=== PATIENT | female | born 1975 | race Caucasian/White ===

== ENCOUNTER 2020-10-02 13:30 | Emergency (ER) | payer OTHER ==
[2020-10-02 13:42] VITALS: RESP 18
[2020-10-02] MEDS ORDERED: SODIUM CHLORIDE 0.9% 1,000 ML IV STA (14:01)
[2020-10-02] MEDS ORDERED: ONDANSETRON 4 MG/2 ML VIAL IVP STA (14:01)
[2020-10-02] MEDS ORDERED: MORPHINE SULFATE 4 MG/ML SYRINGE IV STA (14:01)
--- NOTE | 2020-10-02 14:15 | ED ---
Abdominal Pain HPI - General Chief Complaint: Abdominal Pain Stated Complaint: Pain in R abdomen, Time Seen by Provider: 10/02/20 13:42 Source: patient, RN notes reviewed Mode of arrival: ambulatory Limitations: no limitations - History of Present Illness Initial Comments: This a 45-year-old female presents emergency Department chief complaint of abdominal pain. Patient states started Tuesday has progressively worsened. She has right lower quadrant abdominal pain that she states that is not improving. She states she's been taking 800 mg Motrin constantly states that the pain is worsening. She states it does radiate slightly to the right side. Patient denies any dysuria hematuria. Patient states she thought initially was just from her mental cycle. Denies any significant diarrhea constipation chest pain shortness breath no prior abdominal surgeries. - Related Data Home Medications Medication Instructions Recorded Confirmed Acetaminophen Tab [Tylenol Tab] 1,000 mg PO Q6H PRN 10/02/20 10/02/20 Amberen 1 tab PO DAILY 10/02/20 10/02/20 Biotin 5 mg PO DAILY 10/02/20 10/02/20 Cider Vinegar [Apple Cider Vinegar] 300 mg PO DAILY 10/02/20 10/02/20 Cyanocobalamin (Vitamin B-12) 1,000 mcg PO DAILY 10/02/20 10/02/20 [Vitamin B-12] Esomeprazole Magnesium [NexIUM 20 mg PO DAILY 10/02/20 10/02/20 24Hr] Ibuprofen [Motrin Ib] 800 mg PO Q6H PRN 10/02/20 10/02/20 Vitamin D3(Unknown) 1 tab PO DAILY 10/02/20 10/02/20 Allergies Allergy/AdvReac Type Severity Reaction Status Date / Time Sulfa (Sulfonamide Allergy Rash/Hives Verified 10/02/20 14:46 Antibiotics) Review of Systems ROS Statement: Those systems with pertinent positive or pertinent negative responses have been documented in the HPI. ROS Other: All systems not noted in ROS Statement are negative. Past Medical History History of Any Multi-Drug Resistant Organisms: None Reported Past Surgical History: Section Additional Past Surgical History / Comment(s): uterine ablation, D&C Smoking Status: Never smoker Past Alcohol Use History: None Reported Past Drug Use History: None Reported General Exam Limitations: no limitations General appearance: alert, in no apparent distress Head exam: Present: atraumatic, normocephalic, normal inspection Neck exam: Present: normal inspection, full ROM. Absent: tenderness, meningismus, lymphadenopathy Respiratory exam: Present: normal lung sounds bilaterally. Absent: respiratory distress, wheezes, rales, rhonchi, stridor Cardiovascular Exam: Present: regular rate, normal rhythm, normal heart sounds. Absent: systolic murmur, diastolic murmur, rubs, gallop, clicks GI/Abdominal exam: Present: soft, tenderness (Moderate right-sided abdominal tenderness), normal bowel sounds. Absent: distended, guarding, rebound, rigid Back exam: Absent: CVA tenderness (R), CVA tenderness (L) Neurological exam: Present: alert Skin exam: Present: warm, dry, intact, normal color. Absent: rash Course Vital Signs 10/02/20 10/02/20 13:38 15:36 Temperature 97.9 F 98 F Pulse Rate 71 66 Respiratory 18 18 Rate Blood Pressure 137/81 116/74 O2 Sat by Pulse 99 99 Oximetry Medical Decision Making - Medical Decision Making 45-year-old female presented for right-sided abdominal pain and CT confirmed approximately 3 cm ovarian cyst. patient otherwise unremarkable urinalysis unremarkable labs reviewed. patient follow-up with her lighter captain return parameters were discussed. - Lab Data Result diagrams: 10/02/20 14:02 10/02/20 14:02 Lab Results 10/02/20 10/02/20 10/02/20 Range/Units 14:02 14:02 14:02 WBC 12.4 H (3.8-10.6) k/uL RBC 4.70 (3.80-5.40) m/uL Hgb 13.7 (11.4-16.0) gm/dL Hct 42.9 (34.0-46.0) % MCV 91.4 (80.0-100.0) fL MCH 29.2 (25.0-35.0) pg MCHC 32.0 (31.0-37.0) g/dL RDW 13.2 (11.5-15.5) % Plt Count 252 (150-450) k/uL MPV 7.9 Neutrophils % 83 % Lymphocytes % 12 % Monocytes % 3 % Eosinophils % 1 % Basophils % 0 % Neutrophils # 10.3 H (1.3-7.7) k/uL Lymphocytes # 1.5 (1.0-4.8) k/uL Monocytes # 0.4 (0-1.0) k/uL Eosinophils # 0.1 (0-0.7) k/uL Basophils # 0.0 (0-0.2) k/uL Sodium 139 (137-145) mmol/L Potassium 4.0 (3.5-5.1) mmol/L Chloride 103 (98-107) mmol/L Carbon Dioxide 27 (22-30) mmol/L Anion Gap 9 mmol/L BUN 15 (7-17) mg/dL Creatinine 0.79 (0.52-1.04) mg/dL Est GFR (CKD-EPI)AfAm >90 (>60 ml/min/1.73 sqM) Est GFR (CKD-EPI)NonAf >90 (>60 ml/min/1.73 sqM) Glucose 100 H (74-99) mg/dL Plasma Lactic Acid Adria (0.7-2.0) mmol/L Calcium 9.4 (8.4-10.2) mg/dL Total Bilirubin 0.5 (0.2-1.3) mg/dL AST 22 (14-36) U/L ALT 15 (4-34) U/L Alkaline Phosphatase 98 (38-126) U/L Total Protein 7.7 (6.3-8.2) g/dL Albumin 4.6 (3.5-5.0) g/dL Amylase 78 (30-110) U/L Lipase 83 (23-300) U/L Urine Color Yellow Urine Appearance Cloudy H (Clear) Urine pH 5.5 (5.0-8.0) Ur Specific [place] 1.041 H (1.001-1.035) Urine Protein Trace H (Negative) Urine Glucose (UA) Negative (Negative) Urine Ketones Negative (Negative) Urine Blood Moderate H (Negative) Urine Nitrite Negative (Negative) Urine Bilirubin Negative (Negative) Urine Urobilinogen <2.0 (<2.0) mg/dL Ur Leukocyte Esterase Small H (Negative) Urine RBC 1 (0-5) /hpf Urine WBC 5 (0-5) /hpf Ur Squamous Epith Cells 4 (0-4) /hpf Urine Bacteria Rare H (None) /hpf Urine Mucus Occasional H (None) /hpf 10/02/20 Range/Units 14:02 WBC (3.8-10.6) k/uL RBC (3.80-5.40) m/uL Hgb (11.4-16.0) gm/dL Hct (34.0-46.0) % MCV (80.0-100.0) fL MCH (25.0-35.0) pg MCHC (31.0-37.0) g/dL RDW (11.5-15.5) % Plt Count (150-450) k/uL MPV Neutrophils % % Lymphocytes % % Monocytes % % Eosinophils % % Basophils % % Neutrophils # (1.3-7.7) k/uL Lymphocytes # (1.0-4.8) k/uL Monocytes # (0-1.0) k/uL Eosinophils # (0-0.7) k/uL Basophils # (0-0.2) k/uL Sodium (137-145) mmol/L Potassium (3.5-5.1) mmol/L Chloride (98-107) mmol/L Carbon Dioxide (22-30) mmol/L Anion Gap mmol/L BUN (7-17) mg/dL Creatinine (0.52-1.04) mg/dL Est GFR (CKD-EPI)AfAm (>60 ml/min/1.73 sqM) Est GFR (CKD-EPI)NonAf (>60 ml/min/1.73 sqM) Glucose (74-99) mg/dL Plasma Lactic Acid Adria 1.0 (0.7-2.0) mmol/L Calcium (8.4-10.2) mg/dL Total Bilirubin (0.2-1.3) mg/dL AST (14-36) U/L ALT (4-34) U/L Alkaline Phosphatase (38-126) U/L Total Protein (6.3-8.2) g/dL Albumin (3.5-5.0) g/dL Amylase (30-110) U/L Lipase (23-300) U/L Urine Color Urine Appearance (Clear) Urine pH (5.0-8.0) Ur Specific [place] (1.001-1.035) Urine Protein (Negative) Urine Glucose (UA) (Negative) Urine Ketones (Negative) Urine Blood (Negative) Urine Nitrite (Negative) Urine Bilirubin (Negative) Urine Urobilinogen (<2.0) mg/dL Ur Leukocyte Esterase (Negative) Urine RBC (0-5) /hpf Urine WBC (0-5) /hpf Ur Squamous Epith Cells (0-4) /hpf Urine Bacteria (None) /hpf Urine Mucus (None) /hpf Disposition Clinical Impression: Ovarian cyst, Abdominal pain Disposition: HOME SELF-CARE Condition: Stable Instructions (If sedation given, give patient instructions): Ovarian Cyst (ED) Additional Instructions: Please return to the Emergency Department if symptoms worsen or any other concerns. Is patient prescribed a controlled substance at d/c from ED?: No Referrals: Jessica Stein MD [Primary Care Provider] - 1-2 days Time of Disposition: 16:12
[2020-10-02 14:36] LABS: Appearance,Urine Cloudy (Clear); Bacteria,Urine Rare /hpf; Bilirubin,Urine Negative (Negative); Blood,Urine Moderate (Negative); Color,Urine Yellow; Glucose,Urine (UA) Negative (Negative); Ketones,Urine Negative (Negative); Leukocyte Esterase,Urine Small (Negative); Mucus,Urine Occasional /hpf; Nitrite,Urine Negative (Negative); PH, Urine 5.5 (5.0-8.0); Protein,Urine Trace (Negative); RBC,Urine 1 /hpf (0-5); Specific Gravity,Urine 1.041 (1.001-1.035); Squamous Epithelial Cell,Urine 4 /hpf (0-4); Urobilinogen,Urine <2.0 mg/dL (<2.0); WBC,Urine 5 /hpf (0-5)
[2020-10-02 14:37] LABS: ALT 15 U/L (4-34); AST 22 U/L (14-36); African American GFR (CKD) >90 (>60 ml/min/1.73 sqM); Albumin 4.6 g/dL (3.5-5.0); Alkaline Phosphatase 98 U/L (38-126); Amylase 78 U/L (30-110); Anion Gap 9 mmol/L; Blood Urea Nitrogen 15 mg/dL (7-17); Calcium 9.4 mg/dL (8.4-10.2); Carbon Dioxide 27 mmol/L (22-30); Chloride 103 mmol/L (98-107); Glucose 100 mg/dL (74-99); Lipase 83 U/L (23-300); Non-African American GFR(CKD) >90 (>60 ml/min/1.73 sqM); Sodium 139 mmol/L (137-145); Total Bilirubin 0.5 mg/dL (0.2-1.3); Total Protein 7.7 g/dL (6.3-8.2)
--- NOTE | 2020-10-02 14:38 | CT ---
EXAMINATION TYPE: CT abdomen pelvis w con DATE OF EXAM: 10/02/2020 COMPARISON: None HISTORY: Right lower quadrant pain CT DLP: 1.4 mGycm CONTRAST: CT scan of the abdomen and pelvis is performed without Oral Contrast and with IV Contrast, patient in jected with 100 mL of Isovue 300. FINDINGS: LUNG BASES-: No visible nodule. No infiltrate. Small hiatal hernia noted. LIVER/GB: No calcified gallstones. No space occupying hepatic lesion. Biliary tree is of normal ca liber. PANCREAS: No inflammation. No distinct mass. SPLEEN: No splenic enlargement. No lesion seen. ADRENALS: No nodule. No thickening. KIDNEYS/BLADDER: No hydronephrosis. No nephrolithiasis. No distinct renal mass. Urinary bladder g rossly unremarkable. BOWEL: Normal appendix. Normal bowel caliber. No inflammation. GENITAL ORGANS: Right ovarian cyst measures 2.8 cm in greatest dimension. The uterus and left ovary are within normal limits. LYMPH NODES: No greater than 1cm abdominal or pelvic lymph nodes are appreciated. AORTA: No significant abnormality. OSSEOUS STRUCTURES: No significant abnormality is seen. OTHER: No significant additional abnormality is seen. IMPRESSION: 1. Right ovarian cyst. 2. Hiatal hernia.
[2020-10-02 14:45] LABS: Basophils % (A) 0 %; Eosinophils # (A) 0.1 k/uL (0-0.7); Eosinophils % (A) 1 %; HCT 42.9 % (34.0-46.0); HGB 13.7 gm/dL (11.4-16.0); Lymphocytes # (A) 1.5 k/uL (1.0-4.8); Lymphocytes % (A) 12 %; MCH 29.2 pg (25.0-35.0); MCV 91.4 fL (80.0-100.0); Mean Platelet Volume 7.9; Monocytes # (A) 0.4 k/uL (0-1.0); Monocytes % (A) 3 %; Neutrophils # (A) 10.3 k/uL (1.3-7.7); Neutrophils % (A) 83 %; Platelet Count 252 k/uL (150-450); RDW 13.2 % (11.5-15.5); WBC 12.4 k/uL (3.8-10.6)
[2020-10-02 15:38] VITALS: BP 116/74; PULSE 66; TEMP 98
--- NOTE | 2020-10-02 15:49 | US ---
EXAMINATION TYPE: US transvaginal DATE OF EXAM: 10/02/2020 COMPARISON: CT abdomen and pelvis earlier today CLINICAL HISTORY: right ovarian cyst, pain. RLQ pain TECHNIQUE: Transvaginal (TV). EXAM MEASUREMENTS: Uterus: 8.8 x 4.5 x 6.6 cm Endometrial Stripe: Not well visualized. Right Ovary: 3.0 x 2.8 x 2.8 cm 1. Uterus: Anteverted Heterogenous fibroid seen 2.0 x 2.0 x 2.2 cm 2. Endometrium: Not well visualized. 3. Right Ovary: Cystic area seen 2.7 x 1.9 x 2.1 cm 4. Left Ovary: Obscured by overlying bowel gas Spectral, color and waveform doppler imaging shows good arterial and venous flow within the right o vary 5. Bilateral Adnexa: wnl 6. Posterior cul-de-sac: wnl Small nabothian cysts seen on initial images. Markedly heterogeneous uterus suspicious for underlying fibroids. There is 2.7 cm thin-walled cyst or cystic lesion in the right ovary corresponding to rece nt CT. No left-sided adnexal masses. IMPRESSION: Heterogeneous fibroid uterus. Incidental O-Rads 1 lesion right ovary.
[2020-10-02] MEDS ORDERED: HYDROmorphone 0.5 MG/0.5 ML SYRINGE IVP STA (15:50)
[2020-10-02] MEDS ORDERED: ACET/COD 300 MG/30 MG STARTER PACK 6 TAB BTL PO STA (16:12)
== END 2020-10-02 16:25 | disposition home or self-care (01) ==
LOC: EC 13:30
DX: N83.201 Unspecified ovarian cyst, right side (principal); Z79.899 Other long term (current) drug therapy; Z88.2 Allergy status to sulfonamides
CPT/HCPCS: 36415; 74177; 76830; 80053; 81001; 82150; 83605; 83690; 85025; 93976; 96361; 96372; 96374; 99284

== ENCOUNTER → 2022-06-08 | Outpatient (CLI) | payer BC ==
--- NOTE | 2022-06-09 08:07 | MM ---
Reason for Exam: Screening (asymptomatic). Patient History: Menarche at age 11. First Full-Term at age 29. Premenopausal. Maternal aunt had breast cancer, age 58. Risk Values: Alice 5 year model risk: 1.1%. NCI Lifetime model risk: 11.3%. Tissue Density: There are scattered fibroglandular densities. Findings: Analyzed By CAD. There is no suspicious group of microcalcifications or new suspicious mass in either breast. Overall Assessment: Negative, BI-RAD 1 Management: Screening Mammogram of both breasts in 1 year. A clinical breast exam by your physician is recommended on an annual basis and results should be correlated with mammographic findings. [facility] will attempt to contact patient to return for supplemental views and ultrasound if indicated. Electronically signed and approved by: Bala Vazquez DO
== END | disposition home or self-care (01) ==
LOC: RADMAMWWP 08:57
PROVIDERS: ATTEND Obstetrics & Gynecology
DX: Z12.31 Encounter for screening mammogram for malignant neoplasm of breast (principal); Z80.3 Family history of malignant neoplasm of breast
CPT/HCPCS: 77063; 77067

== ENCOUNTER → 2023-04-08 | Outpatient (CLI) | payer BC ==
[2023-04-08 11:15] LABS: MCH 33.3 pg (27.0-32.0); MCHC 36.6 d/dL (32.0-37.0); MCV 91.1 FL (80.0-97.0); Mean Platelet Volume 11.2 FL (9.5-12.2); NRBC Per 100 WBC 0 X 10*3/uL (0.00-0.01); Platelet Count 287 X 10*3/uL (140-440); RDW 12.9 % (11.5-14.5); WBC 6.04 X 10*3/uL (4.50-10.00)
[2023-04-08 17:31] LABS: ALT 21 U/L (8-44); AST 16 U/L (13-35); Albumin 4.2 d/dL (3.8-4.9); Albumin/Globulin Ratio 1.62 Ratio (1.60-3.17); Alkaline Phosphatase 95 U/L (41-126); BUN/Creat Ratio 21.38 Ratio (12.00-20.00); Blood Urea Nitrogen 17.1 mg/dL (9.0-27.0); Calcium 9.7 mg/dL (8.7-10.3); Carbon Dioxide 28.5 mmol/L (21.6-31.8); Chloride 104 mmol/L (96-109); Chol/HDL Ratio 2.91 Ratio; Globulin 2.6 d/dL (1.6-3.3); Glucose 90 mg/dL (70-110); Potassium 4.3 mmol/L (3.5-5.5); Sodium 140 mmol/L (135-145); Total Bilirubin 0.5 mg/dL (0.3-1.2); Total Protein 6.8 d/dL (6.2-8.2); VLDL Calculation 16.28 mg/dL (5.00-40.00)
== END | disposition home or self-care (01) ==
LOC: LABWHC1 07:59
PROVIDERS: ATTEND Student in an Organized Health Care Education/Training Program
DX: I10 Essential (primary) hypertension (principal); E11.9 Type 2 diabetes mellitus without complications; E78.5 Hyperlipidemia, unspecified
CPT/HCPCS: 36415; 80053; 80061; 82784; 83036; 84443; 85027

== ENCOUNTER → 2023-06-10 | Outpatient (CLI) | payer BC ==
--- NOTE | 2023-06-10 16:15 | NM ---
EXAMINATION TYPE: NM hepatobiliary w EF DATE OF EXAM: 06/10/2023 3:27 PM COMPARISON: CT abdomen pelvis most recent from 10/02/2020 CLINICAL INDICATION:Female, 48 years old with history of K81.1 CHOLECYSTITIS K21.01 GERD WITH BLEEDI NG; TECHNIQUE: The patient was given 4.8 mCi of Technetium 99m-Mebrofenin as a radiotracer and multiple scintigraphic images were obtained of the abdomen. Gallbladder function was also assessed after the a dministration of ensure drink and additional scintigraphic images were obtained of the abdomen. A reg ion of interest was drawn over the gallbladder and a timing activity curve was generated. The gallbla dder ejection fraction was calculated. FINDINGS: Normal uptake of radiotracer was identified within the liver with excretion into the hepatic and comm on biliary ducts . There was normal progressive washout of the liver over the course of the study. Ra diotracer uptake within the gallbladder as well as small bowel activity was identified . Maximum calculated gallbladder ejection fraction is: 49% at 30 minutes (Normal gallbladder ejection fraction is > 35%) IMPRESSION: 1. Normal hepatobiliary scan. 2. Normal ejection fraction.
== END | disposition home or self-care (01) ==
LOC: RADNMMAIN 12:39
PROVIDERS: ATTEND Surgery Plastic and Reconstructive Surgery
DX: K81.1 Chronic cholecystitis (principal); K21.01 Gastro-esophageal reflux disease with esophagitis, with bleeding
CPT/HCPCS: 78226; A9537

== ENCOUNTER → 2023-06-10 | Outpatient (CLI) | payer BC ==
--- NOTE | 2023-06-10 10:39 | US ---
EXAMINATION TYPE: US abdomen limited DATE OF EXAM: 06/10/2023 COMPARISON: CT 10/02/2020 CLINICAL INDICATION: Female, 48 years old with history of K81.1 CHRONIC CHOLECYSTITIS K21.01 GERD WIT H BLEED; Gastroesophageal reflux. TECHNIQUE: Multiple sonographic images of the right upper quadrant are obtained. FINDINGS: EXAM MEASUREMENTS: Liver Length: 17.1 cm Gallbladder Wall: 0.29 cm CBD: 0.38 cm Right Kidney: 12.6 x 5.9 x 4.8 cm REAL ESTATE BROKER NOTES: Limited due to gas and patient body habitus. Pancreas: Limited visibility. Liver: Within normal limits no evidence mass or dilated ducts or cystic structures. Gallbladder: *Hyperechoic area seen within: 0.8 x 0.6 x 0.4 cm. Area was only seen in LLD, difficult to determine if mobile or not. Evidence for sonographic Chamorro's sign: No CBD: Appears wnl Right Kidney: ?Minimally enlarged. No hydronephrosis or masses seen IMPRESSION: 1. No evidence for acute process. 2. Adherent gallstones versus gallbladder polyps. Short-term follow-up in 6 months recommended to en sure stability/resolution.
== END | disposition home or self-care (01) ==
LOC: RADUSWWP 07:30
PROVIDERS: ATTEND Surgery Plastic and Reconstructive Surgery
DX: K81.1 Chronic cholecystitis (principal); K21.01 Gastro-esophageal reflux disease with esophagitis, with bleeding
CPT/HCPCS: 76705

== ENCOUNTER → 2023-06-24 | Outpatient (CLI) | payer BC ==
--- NOTE | 2023-06-25 19:21 | FL ---
EXAMINATION TYPE: FL barium swallow DATE OF EXAM: 06/24/2023 COMPARISON: None HISTORY: Gastroesophageal reflux TECHNIQUE: A double air contrast esophagram study is performed. FINDINGS: Fluoroscopy time: 1 minute 18 seconds. D AP: 3345.09 Images: 170 Centimeters dilation normal caliber and has normal contour to the gastroesophageal junction. Gastroes ophageal junction opens to normal caliber. Small sliding-type hiatal hernia is evident during the exa m. There is complete stripping of the esophageal bolus in the horizontal drinking position. Reflux was evident during the examination to the level of the clavicles. Upper stomach and duodenum are within the [id number] and appear unremarkable. IPRESSION: 1.Gastroesophageal reflux to the level of clavicles. 2. Small self reducing sliding type hiatal hernia.
== END | disposition home or self-care (01) ==
LOC: RADUSWWP 08:36
PROVIDERS: ATTEND Surgery Plastic and Reconstructive Surgery
DX: K44.9 Diaphragmatic hernia without obstruction or gangrene (principal); K21.01 Gastro-esophageal reflux disease with esophagitis, with bleeding
CPT/HCPCS: 74220

== ENCOUNTER 2023-07-20 07:09 | Day surgery (SDC) | payer BC ==
[2023-07-15 11:13] VITALS: BMI 37.3
[~2023-07-20 07:09] MED LIST: LIDOCAINE 1% (10MG/ML) FOR IV START INTRADERMA PRN
--- NOTE | 2023-07-20 07:42 | P.GSHP ---
History of Present Illness H&P Date: 07/20/23 CHIEF COMPLAINT: GERD and colon screen HISTORY OF PRESENT ILLNESS: The patient is a 48-year-old female who presents with gastroesophageal reflux disease and need for colon screen. Upper and lower endoscopy were offered for further evaluation and management. PAST MEDICAL HISTORY: Please see list. PAST SURGICAL HISTORY: Please see list. MEDICATIONS: Please see list. ALLERGIES: Please see list. SOCIAL HISTORY: No illicit drug use FAMILY HISTORY: No reports of Crohn disease or ulcerative colitis. REVIEW OF ORGAN SYSTEMS: CONSTITUTIONAL: No reports of fevers or chills. GI: Denies any blood in stools or constipation. PHYSICAL EXAM: VITAL SIGNS: Stable GENERAL: Well-developed pleasant in no acute distress. HEENT: No scleral icterus. Extraocular movements grossly intact. Moist buccal mucosa. NECK: Supple without lymphadenopathy. CHEST: Unlabored respirations. Equal bilateral excursions. CARDIOVASCULAR: Regular rate and rhythm. Distal 2+ pulses. ABDOMEN: Soft, nondistended. MUSCULOSKELETAL: No clubbing, cyanosis, or edema. ASSESSMENT: 1. Gastroesophageal reflux disease 2. Colon screen. PLAN: 1. Recommend proceeding with an upper and lower endoscopy Past Medical History Past Medical History: No Reported History History of Any Multi-Drug Resistant Organisms: None Reported Past Surgical History: Section, Hysterectomy Additional Past Surgical History / Comment(s): uterine ablation, D&C Past Anesthesia/Blood Transfusion Reactions: No Reported Reaction Additional Past Anesthesia/Blood Transfusion Reaction / Comment(s): no blood transfusion Smoking Status: Never smoker - Past Family History Mother Family Medical History: Pulmonary Embolus Medications and Allergies Home Medications Medication Instructions Recorded Confirmed Type Acetaminophen Tab [Tylenol Tab] 1,000 mg PO Q6H PRN 10/02/20 07/20/23 History Allergies Allergy/AdvReac Type Severity Reaction Status Date / Time Sulfa (Sulfonamide Allergy Rash/Hives Verified 07/20/23 07:37 Antibiotics) vibegron [From Gemtesa] Allergy Rash/Hives Verified 07/20/23 07:37
[2023-07-20] MEDS: LACTATED RINGERS 1,000 ML IV SCH (07:52)
[2023-07-20 08:07] VITALS: RESP 16; TEMP 97.6
[2023-07-20] MEDS ORDERED: PROPOFOL 10 MG/ML 20 ML VIAL IV ONE (08:07)
[2023-07-20] MEDS ORDERED: LIDOCAINE 1% INJ 10MG/ML (20 ML MDV) ONE (08:07)
[2023-07-20] MEDS ORDERED: GLYCOPYRROLATE 0.2 MG/ML 2 ML VIAL ONE (08:07)
--- NOTE | 2023-07-20 08:59 | P.PCN ---
Date of Procedure: 07/20/23 Description of Procedure: PREOPERATIVE DIAGNOSIS: Colonoscopy screening. POSTOPERATIVE DIAGNOSIS: Colonoscopy screening. OPERATION: Colonoscopy to the cecum, ileocecal valve and appendiceal orifice. SURGEON: Mela Alexander MD. ANESTHESIA: MAC. INDICATIONS: The patient is a 48-year-old female who presents for colonoscopy screening. Benefits and risks were described and informed consent was obtained. DESCRIPTION OF PROCEDURE: The patient had undergone Sutab prep. The patient had been brought into the operating room and laid in the left lateral decubitus position. After adequate intravenous sedation, the rectum was examined with 2% lidocaine jelly. No external hemorrhoids were encountered. The rectal tone was within normal limits. No lesions were palpated in the rectal vault. An Olympus colonoscope was advanced until the cecum, ileocecal valve and appendiceal orifice were clearly viewed. The prep was excellent. No scattered diverticulosis was encountered. No colonic polyps were found. No evidence of focal colitis was found. Retroflexion of the scope demonstrated grade 1 internal hemorrhoids without active bleeding or inflammation. The colon was desufflated. The patient had tolerated the procedure well. Withdrawal time was over 6 minutes. FINDINGS: Aronchick preparation quality scale 1 (1-5) Internal hemorrhoids, grade 1 No external prolapsed hemorrhoids. No arteriovenous malformations. No adenomatous polyps. No focal colitis. RECOMMENDATIONS: Lower endoscopy 10 years, 2033 Plan - Discharge Summary Discharge Rx Participant: No New Discharge Prescriptions: New Sucralfate [Carafate] 1 gm PO BID #30 tablet Omeprazole [PriLOSEC] 40 mg PO DAILY #14 cap Continue Acetaminophen Tab [Tylenol] 1,000 mg PO Q6H PRN PRN Reason: Pain Discharge Medication List Acetaminophen Tab [Tylenol] 1,000 mg PO Q6H PRN 10/02/20 [History] Omeprazole [PriLOSEC] 40 mg PO DAILY #14 cap 07/20/23 [Rx] Sucralfate [Carafate] 1 gm PO BID #30 tablet 07/20/23 [Rx] Follow up Appointment(s)/Referral(s): Mela Alexander MD [STAFF PHYSICIAN] - 08/02/23 3:45 pm Patient Instructions/Handouts: *Surgery [facility] - (Anesthesia) Discharge Instructions Outpatient Surgery, Peptic Ulcer (GEN), Hiatal Hernia (DC), Diet for Stomach Ulcers and Gastritis (GEN), Esophagitis (DC) Activity/Diet/Wound Care/Special Instructions: Repeat colonoscopy 10 years, 2033 Discharge Disposition: HOME SELF-CARE
--- NOTE | 2023-07-20 09:02 | P.PCN ---
Date of Procedure: 07/20/23 Description of Procedure: PREOPERATIVE DIAGNOSIS: Gastroesophageal reflux disease. Morbid obesity. POSTOPERATIVE DIAGNOSIS: Gastroesophageal reflux disease. Morbid obesity. Gastritis with bleeding Gastric polyp Esophageal ulcers with bleeding Gastric ulcers with bleeding Diaphragmatic hiatal hernia OPERATION: Esophagogastroduodenoscopy with biopsies along the esophagus, antrum and duodenum SURGEON: Mela Alexander MD ANESTHESIA: MAC. INDICATIONS: The patient is a 48-year-old female who presents with reflux disease. Benefits and risks of the procedure were described. Informed consent was obtained. DESCRIPTION: The patient was brought into the endoscopy suite and laid in the left lateral decubitus position. An Olympus gastroscope was passed along the posterior oropharynx down to the distal esophagus where the squamocolumnar junction was encountered at 40 cm from the incisors. The stomach was entered and no bile reflux was found. Additional findings are listed below. Biopsies with cold forceps were obtained of the antrum. The first through third portion of the duodenum was examined. Retroflexion of the scope confirmed Hill grade 4 lower esophageal valve. The squamocolumnar junction demonstrated LA grade B erosive esophagitis. The stomach was desufflated. The patient tolerated the procedure well. FINDINGS: Squamocolumnar junction 30 cm from the incisors. Diaphragmatic hiatus at 37 cm. Hiatal hernia, 7 cm Hill grade 4 lower esophageal valve. Biopsies obtained Gastric ulcers along antrum with recent bleeding, 5 mm 3 LA grade D erosive esophagitis with ulceration, 2 cm of bleeding. Linear erosions, 3 cm from 27 cm from the incisors. Biopsies obtained Biopsies obtained of the duodenum. Chronic gastritis with bleeding, biopsies obtained. RECOMMENDATIONS: Repeat upper endoscopy in 4-6 weeks Omeprazole and Carafate for 2 weeks
[2023-07-20 09:12] VITALS: BP 115/83; PULSE 75
== END 2023-07-20 09:41 | disposition home or self-care (01) ==
LOC: ORWHC2ENDO 07:09
PROVIDERS: ATTEND Surgery Plastic and Reconstructive Surgery
DX: Z12.11 Encounter for screening for malignant neoplasm of colon (principal); K29.80 Duodenitis without bleeding; K21.00 Gastro-esophageal reflux disease with esophagitis, without bleeding; K29.51 Unspecified chronic gastritis with bleeding; K22.11 Ulcer of esophagus with bleeding; K25.4 Chronic or unspecified gastric ulcer with hemorrhage; K31.7 Polyp of stomach and duodenum; K44.9 Diaphragmatic hernia without obstruction or gangrene; K64.0 First degree hemorrhoids; E66.01 Morbid (severe) obesity due to excess calories; Z90.710 Acquired absence of both cervix and uterus; Z98.890 Other specified postprocedural states; Z88.2 Allergy status to sulfonamides; Z88.1 Allergy status to other antibiotic agents; Z88.8 Allergy status to other drugs, medicaments and biological substances; Z68.38 Body mass index [BMI] 38.0-38.9, adult
CPT/HCPCS: 88305; 88312; 45378; 43239; J2001; J2704

== ENCOUNTER → 2023-09-07 | Outpatient (CLI) | payer BC ==
--- NOTE | 2023-09-07 13:52 | P.HPBAR ---
Bariatric H&P - History & Physicial H&P Date: 09/07/23 History & Physicial: Visit/CC: Patient initial contact: Initial weight: Initial weight in pounds: Height: Initial BMI: Last weight: Current weight: Current weight in pounds: Current BMI: [place] body weight (based on NIH guidelines): Excess body weight loss: The patient is a 48 year-old F who presents for Bariatric Assessment. Has hiatal hernia. Has bad reflux. Highest weight is 310 pounds. Was doing keto and was 240 pounds prior to hysterectomy. Has tried dieting in the past and has been dieting. All family and uncle was over 500 pounds on mom side with diabetes, No crohns or ulcerative colitis. Mother had blood clots at age 11. Path reviewed. Has hiatal hernia. Waiting on cardiac clearance. Needs omeprazole and carafate. Get labs. She has gallbladder. Past Medical History Past Medical History: No Reported History History of Any Multi-Drug Resistant Organisms: None Reported Past Surgical History: Section Additional Past Surgical History / Comment(s): uterine ablation, D&C Past Anesthesia/Blood Transfusion Reactions: No Reported Reaction Additional Past Anesthesia/Blood Transfusion Reaction / Comm: no blood transfusion Smoking Status: Never smoker - Past Family History Mother Family Medical History: Pulmonary Embolus Bariatric Checklist Checklist: Plan: Checklist: EGD: 1. Hiatal hernia: 2. H. Pylori: HgbA1c: Vitamin D: Smoking: Primary care physician referral: Psychiatry clearance: Cardiology clearance: Sleep study: Diet journal: VTE risk score: VTE risk level: Rehab needs at discharge:
[2023-09-07 15:16] VITALS: BP 111/77; PULSE 75; RESP 16; TEMP 98.2; BMI 41.0
== END ==
LOC: BARWHC3 12:32
PROVIDERS: ATTEND Surgery Plastic and Reconstructive Surgery
DX: E66.01 Morbid (severe) obesity due to excess calories (principal); Z53.9 Procedure and treatment not carried out, unspecified reason
CPT/HCPCS: 99202

== ENCOUNTER → 2023-09-09 | Outpatient (CLI) | payer BC ==
[2023-09-09 10:49] LABS: INR 0.9 (<1.2); Partial Thromboplastin Time 24.4 sec (22.0-30.0); Prothrombin Time 10.3 sec (10.0-12.5)
[2023-09-09 16:04] LABS: HCT 41.7 % (37.2-46.3); HGB 13.1 g/dL (12.0-15.0); MCH 29.5 pg (27.0-32.0); MCHC 31.4 g/dL (32.0-37.0); MCV 93.9 FL (80.0-97.0); Mean Platelet Volume 10.9 FL (9.5-12.2); NRBC Per 100 WBC 0 X 10*3/uL (0.00-0.01); Platelet Count 242 X 10*3/uL (140-440); RBC 4.44 X 10*6/uL (4.10-5.20); RDW 12.7 % (11.5-14.5); WBC 4.36 X 10*3/uL (4.50-10.00)
[2023-09-09 16:30] LABS: ALT 33 U/L (8-44); AST 26 U/L (13-35); Albumin/Globulin Ratio 1.74 Ratio (1.60-3.17); Alkaline Phosphatase 96 U/L (41-126); BUN/Creat Ratio 16.89 Ratio (12.00-20.00); Blood Urea Nitrogen 15.2 mg/dL (9.0-27.0); Chloride 106 mmol/L (96-109); Chol/HDL Ratio 3.98 Ratio; Globulin 2.3 g/dL (1.6-3.3); Glucose 93 mg/dL (70-110); Iron 61 UG/DL (50-170); LDL Cholesterol,Calculated 105.2 mg/dL (0.0-131.0); Phosphorus 2.9 mg/dL (2.4-5.1); Potassium 4.2 mmol/L (3.5-5.5); Prealbumin 22.1 mg/dL (18.0-42.0); Sodium 142 mmol/L (135-145); Total Bilirubin 0.6 mg/dL (0.3-1.2); Total Iron Binding Capacity 328 UG/DL (228-460); Total Protein 6.3 g/dL (6.2-8.2)
== END | disposition home or self-care (01) ==
LOC: LABWHC1 09:04
PROVIDERS: ATTEND Surgery Plastic and Reconstructive Surgery
DX: E66.01 Morbid (severe) obesity due to excess calories (principal); D50.8 Other iron deficiency anemias; K91.2 Postsurgical malabsorption, not elsewhere classified; E44.0 Moderate protein-calorie malnutrition; E44.1 Mild protein-calorie malnutrition; E45 Retarded development following protein-calorie malnutrition; E55.9 Vitamin D deficiency, unspecified; K74.1 Hepatic sclerosis; N19 Unspecified kidney failure; T56.894A Toxic effect of other metals, undetermined, initial encounter; K50.90 Crohn's disease, unspecified, without complications
CPT/HCPCS: 36415; 80053; 80061; 80307; 80323; 82306; 82525; 82607; 82728; 82746; 83036; 83540; 83550; 83735; 83970; 84100; 84134; 84255; 84425; 84443; 84590; 84630; 85027; 85610; 85730

== ENCOUNTER → 2023-10-10 | Outpatient (CLI) | payer BC ==
[2023-10-10 14:22] LABS: HCT 40.6 % (37.2-46.3); MCH 29.3 pg (27.0-32.0); MCV 91.6 FL (80.0-97.0); Mean Platelet Volume 10.5 FL (9.5-12.2); NRBC Per 100 WBC 0 X 10*3/uL (0.00-0.01); Platelet Count 240 X 10*3/uL (140-440); RBC 4.43 X 10*6/uL (4.10-5.20); RDW 12.5 % (11.5-14.5); WBC 4.87 X 10*3/uL (4.50-10.00)
[2023-10-10 15:18] LABS: Blood Urea Nitrogen 13.1 mg/dL (9.0-27.0); Carbon Dioxide 28.5 mmol/L (21.6-31.8); Chloride 98 mmol/L (96-109); Potassium 4.6 mmol/L (3.5-5.5); Sodium 142 mmol/L (135-145)
== END | disposition home or self-care (01) ==
LOC: LABPAT 08:04
PROVIDERS: ATTEND Psychiatry & Neurology Psychiatry
DX: Z01.812 Encounter for preprocedural laboratory examination (principal)
CPT/HCPCS: 36415; 80051; 82565; 84520; 85027

== ENCOUNTER 2024-04-12 10:20 | Day surgery (SDC) | payer BC ==
[~2024-04-12 10:20] MED LIST changes: -LIDOCAINE 1% (10MG/ML) FOR IV START INTRADERMA PRN; +ONDANSETRON 4 MG/2 ML VIAL IVP PRN
[2024-04-12] MEDS: IV FLUID CONTINUATION 1,000 ML IV ONE (10:45)
[2024-04-12] MEDS: ACETAMINOPHEN TAB 500 MG TAB PO PRN (11:05)
--- NOTE | 2024-04-12 11:09 | P.GSHP ---
History of Present Illness H&P Date: 04/12/24 CHIEF COMPLAINT: Paraesophageal hiatal hernia with gastroesophageal reflux disease. HISTORY OF PRESENT ILLNESS: The patient is a 49-year-old female who presents with symptomatic paraesophageal hiatal hernia over one year with gastroesophageal reflux disease. She has completed upper endoscopy workup. Now she presents for surgical intervention. PAST MEDICAL HISTORY: Please see list. PAST SURGICAL HISTORY: Please see list. MEDICATIONS: Please see list. ALLERGIES: Please see list. SOCIAL HISTORY: No illicit drug use FAMILY HISTORY: No reports of Crohn disease or ulcerative colitis. REVIEW OF ORGAN SYSTEMS: CONSTITUTIONAL: No reports of fevers or chills. GI: Denies any blood in stools or constipation. PHYSICAL EXAM: VITAL SIGNS: Stable GENERAL: Well-developed pleasant and in no acute distress. HEENT: No scleral icterus. Extraocular movements grossly intact. Moist buccal mucosa. NECK: Supple without lymphadenopathy. CHEST: Unlabored respirations. Equal bilateral excursions. CARDIOVASCULAR: Regular rate and rhythm. Distal 2+ pulses. ABDOMEN: Soft, nondistended. No peritoneal signs. MUSCULOSKELETAL: No clubbing, cyanosis, or edema. SKIN: Well-perfused. Good skin turgor. REPORTS: Upper endoscopy demonstrates paraesophageal hiatal hernia BARIUM SWALLOW: Images reviewed demonstrating paraesophageal hiatal hernia. This is my independent interpretation. REPORTS: Cardiology risk assessment obtained. Please see chart. ASSESSMENT: 1. Diaphragmatic paraesophageal hiatal hernia with severe gastroesophageal reflux disease. PLAN: 1. Recommend proceeding with a robotic paraesophageal hiatal hernia with possible mesh. 2. Benefits and risks of surgical intervention was discussed including possibility of open technique. 3. Inpatient hospitalization recommended of 2 nights 4. DVT prophylaxis. 5. Antibiotic prophylaxis. 6. She has also completed a very low caloric high-protein diet to address underlying hepatomegaly. 7. Non narcotic pain management including abdominal wall block described 8. Blood sugar glucose described. 9. Weight loss management described. Past Medical History Past Medical History: GERD/Reflux Additional Past Medical History / Comment(s): hx. left bundle branch block-sees Dr. Calzada, urinary incontinence History of Any Multi-Drug Resistant Organisms: None Reported Past Surgical History: Bladder Surgery, Section, Hysterectomy, Uterine Ablation Additional Past Surgical History / Comment(s): D&C, C/S x2, bladder sling surg. Past Anesthesia/Blood Transfusion Reactions: No Reported Reaction Additional Past Anesthesia/Blood Transfusion Reaction / Comment(s): no blood transfusion Smoking Status: Never smoker, Second hand smoke exposure - Past Family History Mother Family Medical History: Pulmonary Embolus Medications and Allergies Home Medications Medication Instructions Recorded Confirmed Type Omeprazole [PriLOSEC] 40 mg PO DAILY #90 cap 09/07/23 04/12/24 Rx Aspirin EC [Ecotrin Low Dose] 81 mg PO DAILY 10/25/23 04/12/24 History Cholecalciferol [Vitamin D3 (125 125 mcg PO DAILY 10/25/23 04/12/24 History Mcg = 5000 Iu)] Biotin [Biotin Disolve] 5,000 mcg PO DAILY 04/10/24 04/12/24 History Multivitamins, Thera [Multivitamin 1 tab PO DAILY 04/10/24 04/12/24 History (formulary)] Sucralfate [Carafate] 1 gm PO DAILY 04/10/24 04/12/24 History Allergies Allergy/AdvReac Type Severity Reaction Status Date / Time Sulfa (Sulfonamide Allergy Rash/Hives Verified 04/12/24 10:57 Antibiotics) vibegron [From Gemtesa] Allergy Rash/Hives Verified 04/12/24 10:57 Surgical - Exam Vital Signs Temp Pulse Resp BP Pulse Ox 97.3 F L 74 18 137/65 98 04/12/24 10:56 04/12/24 10:56 04/12/24 10:56 04/12/24 10:56 04/12/24 10:56
[2024-04-12] MEDS: LACTATED RINGERS 1,000 ML IV SCH (11:24)
[2024-04-12] MEDS: ONDANSETRON 4 MG/2 ML VIAL IVP ONE (11:25)
[2024-04-12] MEDS: DEXAMETHASONE SOD PHOSPHATE 4 MG/ML 1 ML VIAL IV ONE (11:26)
[2024-04-12] MEDS: SCOPOLAMINE 1 MG/72 HR PATCH TRANSDERM STA (11:37)
[2024-04-12] MEDS: HEPARIN SODIUM,PORCINE 5,000 UNIT/ML 1 ML VIAL SQ PRN (11:37)
[2024-04-12] MEDS ORDERED: ePHEDrine 50 MG/ML 1 ML VIAL ONE (13:17)
[2024-04-12] MEDS ORDERED: ROCURONIUM 10 MG/ML (5 ML VIAL) IV ONE (13:17)
[2024-04-12] MEDS ORDERED: GLYCOPYRROLATE 0.2 MG/ML 2 ML VIAL ONE (13:17)
[2024-04-12] MEDS ORDERED: fentaNYL (PF) 50 MCG/ML 2 ML AMP ONE (13:17)
[2024-04-12] MEDS ORDERED: MIDAZOLAM 2 MG/2 ML VIAL ONE (13:17)
[2024-04-12] MEDS ORDERED: LIDOCAINE 1% INJ 10MG/ML (20 ML MDV) ONE (13:17)
[2024-04-12] MEDS ORDERED: NEOSTIGMINE 1 MG/ML 10 ML VIAL ONE (13:17)
[2024-04-12] MEDS ORDERED: PROPOFOL 10 MG/ML 20 ML VIAL IV ONE (13:17)
[2024-04-12] MEDS ORDERED: SUCCINYLCHOLINE CHLORIDE 200 MG/10 ML VIAL IV ONE (13:17)
[2024-04-12] MEDS ORDERED: HYDROmorphone (PF) 1 MG/ML ONE (13:17)
[2024-04-12] MEDS: ceFAZolin 3 GM in SODIUM CHLORIDE 0.9% 100 ML IVPB PRN (13:22)
[2024-04-12] MEDS: LIDOCAINE 1%-EPI 1:100,000 20 ML VIAL SQ ONE (13:46)
[2024-04-12] MEDS: LACTATED RINGERS 1,000 ML IV ONE (14:49)
[2024-04-12] MEDS ORDERED: PROCHLORPERAZINE INJ 10 MG/2 ML VIAL IVP PRN (15:07)
--- NOTE | 2024-04-12 15:13 | P.OP ---
Date of Procedure: 04/12/24 Description of Procedure: SURGEON: MELA ALEXANDER MD PREOPERATIVE DIAGNOSES: 1. Symptomatic paraesophageal diaphragmatic hiatal hernia. 2. Gastroesophageal reflux disease. 3. Morbid obesity excess calories, BMI 39.6 POSTOPERATIVE DIAGNOSES: 1. Symptomatic paraesophageal diaphragmatic hiatal hernia. 2. Gastroesophageal reflux disease. 3. Morbid obesity excess calories, BMI 39.6 OPERATION: 1. Robotic-assisted da Whit Xi laparoscopic repair of incarcerated paraesophageal hiatal hernia, 4 x 3 cm, with Nelson Biopatch A 8 x 8 cm. 2. Intraoperative esophagogastroduodenoscopy 3. Placement of 56-Nepali bougie for esophageal dysmotility ANESTHESIA: General with local anesthetic. ESTIMATED BLOOD LOSS: 5 mL SPECIMENS REMOVED: None COMPLICATIONS: None. Condition: stable Disposition: floor FINDINGS: 1. Midline incarcerated paraesophageal hiatal hernia 4 x 3 cm 2. Intraoperative upper endoscopy confirms complete closure of hiatal hernia from Hill grade 3 to Hill grade 1 3. Intraesophageal length over 2 cm INDICATIONS: The patient is a 49-year-old female who presents with gastroesophageal reflux disease poorly controlled despite medications, and a symptomatic diaphragmatic hiatal hernia. Preoperative workup including upper endoscopy demonstrated a sliding hiatal hernia. Given the severity of symptoms, the patient had elected for surgical intervention. Benefits and risks including bleeding, infection, recurrence, dysphagia, injury to the lung, need for further surgery was described at length. Informed consent was obtained. DESCRIPTION: The patient was brought into the operating room and placed in supine position. Preoperatively the patient had received heparin subcutaneously for DVT prophylaxis. After general induction, the abdomen was prepped and draped in standard sterile fashion. The patient had previously voided prior to coming to the oper ating room. Ioban draping was placed along the abdomen. A timeout protocol was confirmed with the surgical team, for which the patient's name, procedure to be performed including DVT prophylaxis with bilateral SCDs, and preoperative antibiotics were also confirmed. A robotic da Whit Xi system was prepped and primed. At 12 cm from the xiphoid to just below the umbilicus, proposed port sites were marked with indelible marker along the left axillary line, left mid-clavicular line with each ports were marked 10 cm from each other. A 5 mm 0 degrees laparoscopic trocar entry was performed along the left upper quadrant. The abdomen was insufflated to 15 mmHg pressure was tolerated well. Diagnostic laparoscopy demonstrated no injury to bowel, viscera, or mesentery. No injury had occurred to the small bowel or viscera. The liver was smooth consistent with two-week high-protein low-carb diet. Previous trochar sites from cholecystectomy were used. Next, one 8 mm robotic port was placed along the right upper abdomen. An 8-mm port was were placed along the right lateral lateral abdominal wall. The camera 8-mm port was maintained along the epigastrium. Another 12 mm port was placed along the left upper abdominal wall after exchanging the 5 mm port. Please note that the ports were placed at least 20 cm away from the target anatomy. Care was taken to check that each robotic arm were safely away from collision with the bed or the patient. At the epigastrium, a medium sized Abelardo liver retractor was placed under direct visualization with the [employer] Consultant placed under the right shoulder of the patient. All robotic arms were used. The patient was repositioned in reverse Trendelenburg position at 28-degrees after lowering the bed. The robot was docked above the right side of the patient. Using a grasper for arm 3, a grasper for arm 1, including vessel sealer for arm 2, the robotic system was docked and primed as described. Instruments were interchanged by the assistant professor of life sciences. I had sat at the console. The gastrohepatic ligament was cleaved using a vessel sealer. Next, the phrenoesophageal ligament was mobilized and the distal esophagus was mobilized circumferentially. The left and right crura was identified. Circumferentially, the hernia sac was excised and brought into the peritoneal cavity. Moderate dissection into the mediastinum was performed to release the esophagus into the abdominal cavity. The paraesophageal hiatal hernia sac was also incised and divided from the esophagus. Care was taken to avoid any gastrotomy. The measured defect was consistent with 4 cm axial length and 3 cm in width. After dissection, the distal esophagus of 2+ cm was brought into the abdominal cavity. Once the hiatus and crura was dissected, 2-0 VLOC nonabsorbable suture was placed to reapproximate the diaphragmatic hiatus posteriorly. To buttress the repair, a Nelson Biopatch A was prepared along the back table and cut in half of a perez-hole fashion as to reinforce the repair as an underlay. The mesh was placed along the crural repair and tagged using horizontal mattress sutures using 2-0 VLOC. I went to the head of the bed to perform intraoperative esophagogastroduodenoscopy and placement of a 56Fr bougie. The bougie was passed along the posterior oropharynx into the stomach to address pre-existing esophageal dysmotility for 2 minutes then removed. An Olympus gastroscope was passed through posterior oropharynx. Retroflexion of the scope confirmed a Hill grade 1 lower esophageal valve. The stomach had been desufflated. No evidence of leaks were found of the esophagus or stomach. The GI tract with desufflated This concluded the endoscopic portion of the case. The robot was undocked from the patient. I re-scrubbed into the case. All instruments and pneumoperitoneum and specimens were evacuated from the abdominal cavity. Incisions were reapproximated using 4-0 Monocryl in an interrupted subcuticular fashion. Liquid glue was applied to the skin. Local anesthetic was infiltrated in all wounds for postop analgesia. At the end of the procedure, needle, sponge, and instrument count was verified correct by the surgical services coordinator. The patient had tolerated the procedure well and was taken to the postanesthesia unit in stable condition. Plan - Discharge Summary Discharge Rx Participant: No New Discharge Prescriptions: Continue Cholecalciferol [Vitamin D3 (125 Mcg = 5000 Iu)] 125 mcg PO DAILY Sucralfate [Carafate] 1 gm PO DAILY Biotin [Biotin Disolve] 5,000 mcg PO DAILY Omeprazole [PriLOSEC] 40 mg PO DAILY #90 cap Aspirin EC [Ecotrin Low Dose] 81 mg PO DAILY Multivitamins, Thera [Multivitamin (formulary)] 1 tab PO DAILY Discharge Medication List Omeprazole [PriLOSEC] 40 mg PO DAILY #90 cap 09/07/23 [Rx] Aspirin EC [Ecotrin Low Dose] 81 mg PO DAILY 10/25/23 [History] Cholecalciferol [Vitamin D3 (125 Mcg = 5000 Iu)] 125 mcg PO DAILY 10/25/23 [History] Biotin [Biotin Disolve] 5,000 mcg PO DAILY 04/10/24 [History] Multivitamins, Thera [Multivitamin (formulary)] 1 tab PO DAILY 04/10/24 [History] Sucralfate [Carafate] 1 gm PO DAILY 04/10/24 [History] Follow up Appointment(s)/Referral(s): Mela Alexander MD [STAFF PHYSICIAN] - 04/24/24 4:15 pm Patient Instructions/Handouts: GERD (Gastroesophageal Reflux Disease) (DC) Discharge Disposition: HOME SELF-CARE
[2024-04-12] MEDS: HYDROmorphone 0.5 MG/0.5 ML SYRINGE IVP PRN (15:27)
[2024-04-12] MEDS: SODIUM CHLORIDE 0.9% 1,000 ML IV ONE (15:28)
[2024-04-12] MEDS: METOCLOPRAMIDE 5 MG/ML 2 ML VIAL IVP SCH (17:01)
[2024-04-12] MEDS: DEXAMETHASONE SOD PHOSPHATE 10 MG/ML 1 ML VIAL IVP STA (17:01)
[2024-04-12] MEDS: ACETAMINOPHEN IV (For NPO) 1,000 MG in EMPTY BAG 1 BAG IVPB SCH (17:09)
[2024-04-12] MEDS: ONDANSETRON 4 MG/2 ML VIAL IVP SCH (17:10)
[2024-04-12] MEDS: DEXAMETHASONE SOD PHOSPHATE 4 MG/ML 1 ML VIAL IVP SCH (17:10)
[2024-04-12] MEDS: D5-0.45% NACL WITH KCL 20MEQ/L 1,000 ML IV SCH (17:11)
[2024-04-12] MEDS: HYDROmorphone 2 MG/ML 1 ML SYRINGE IVP PRN (20:33)
[2024-04-12] MEDS: SIMETHICONE 40 MG/0.6 ML DROPS 2,000 MG/30 ML BOTTLE PO SCH (20:55)
[2024-04-13 09:01] VITALS: BP 144/76; PULSE 54; RESP 18; TEMP 97.8
--- NOTE | 2024-04-13 10:35 | P.PN ---
Subjective Progress Note Date: 04/13/24 Patient contacted by telephone as I was in surgery. She reports resolved reflux disease. No further pain or discomfort. Esophagram independently reviewed demonstrates no obstruction or leak. Chest x-ray demonstrates no large pneumothorax. Postop discharge instructions reviewed with her and her family. Patient stable for discharge. Objective - Vital Signs Vital signs: Vital Signs Temp 97.8 F 04/13/24 06:57 Pulse 54 L 04/13/24 06:57 Resp 18 04/13/24 06:57 BP 144/76 04/13/24 06:57 Pulse Ox 97 04/13/24 06:57 FiO2 Intake & Output 04/12/24 04/13/24 04/13/24 18:59 06:59 18:59 Intake Total 1999 1800 Output Total 5 Balance 1994 1800 Weight 121.5 kg Intake: IV 2000 Intake, IV Titration 1800 Amount ACETAMINOPHEN IV (For NPO 200 ) 1,000 mg In Empty Bag 1 bag @ 400 mls/hr IVPB Q6HR [facility] Rx#:[id number] D5-0.45% NaCl with KCl 1500 20Meq/l 1,000 ml @ 125 mls/hr IV .Q8H [facility] Rx#: [id number] ceFAZolin 2 gm In Sodium 100 Chloride 0.9% 50 ml @ 100 mls/hr IVPB Q8H [facility] Rx#: [id number] Output: Estimated Blood Loss 5 Other: # Voids 1 3 1
[2024-04-13 11:26] VITALS: BMI 39.5
--- NOTE | 2024-04-13 11:44 | XR ---
EXAMINATION TYPE: XR chest 2V DATE OF EXAM: 04/13/2024 10:35 AM COMPARISON: None CLINICAL INDICATION: Female, 49 years old with history of Shortness of breath; [facility] TECHNIQUE: XR chest 2V Frontal and lateral views of the chest. FINDINGS: Lungs/Pleura: There is no evidence of pleural effusion, focal consolidation, or pneumothorax. Pulmonary vascularity: Unremarkable. Heart/mediastinum: Cardiomediastinal silhouette is unremarkable. Musculoskeletal: No acute osseous pathology. Other findings: Contrast from barium study seen in the stomach. IMPRESSION: Low lung volumes with a generalized hazy appearance which could represent atelectasis. [facility], , 04/13/2024 11:42 AM
--- NOTE | 2024-04-13 12:48 | FL ---
SINGLE CONTRAST ESOPHAGRAM: CLINICAL HISTORY: 49 year-old female rule out leak/obstruction. Patient status post hiatal hernia re pair yesterday TECHNIQUE: Single contrast exam performed with 2 ounces of Isovue-370 contrast. Total fluoroscopy time: 48 seconds. Total images: 12. Total dose: 150 mGycm2. FINDINGS: The patient swallowed oral contrast without difficulty or delay. Esophageal peristalsis and motility are within normal limits. There is relative narrowing at the level of the GE junction and delayed p assage of contrast from the esophagus into the stomach. With back to back swallows, there is progress dwayne accumulation of contrast in the lower esophagus with intermittent passage. No residual hiatal her alannah seen. There is no evidence of contrast extravasation to suggest leak. No post surgical free air. IMPRESSION: 1. Status post hiatal hernia repair. No residual hiatal hernia. No evidence for leak. 2. Mild relative obstruction at the GE junction level likely due to postoperative edema. Follow-up as clinically indicated. [facility], , 04/13/2024 12:46 PM
== END 2024-04-13 12:07 | disposition home or self-care (01) ==
LOC: OR 10:20 → 4SSUR 14:48 → OR 04-13 12:07
PROVIDERS: ATTEND Surgery Plastic and Reconstructive Surgery
DX: K44.0 Diaphragmatic hernia with obstruction, without gangrene (principal); K21.9 Gastro-esophageal reflux disease without esophagitis; E66.01 Morbid (severe) obesity due to excess calories; Z68.39 Body mass index [BMI] 39.0-39.9, adult; Z79.82 Long term (current) use of aspirin; Z79.899 Other long term (current) drug therapy; Z88.2 Allergy status to sulfonamides; Z88.8 Allergy status to other drugs, medicaments and biological substances
CPT/HCPCS: 43282; S2900; 71046; 74210

== ENCOUNTER 2024-05-18 13:28 | Day surgery (SDC) | payer BC ==
--- NOTE | 2024-05-18 06:26 | P.GSHP ---
History of Present Illness H&P Date: 05/18/24 CHIEF COMPLAINT: Cholecystitis HISTORY OF PRESENT ILLNESS: The patient is a 49-year-old female who presents with history of epigastric including right upper quadrant abdominal pain. She underwent diagnostic studies for her gallbladder. Separately her clinical picture was consistent with cholecystitis. Now she presents for surgical intervention. PAST MEDICAL HISTORY: Please see list PAST SURGICAL HISTORY: Please see list MEDICATIONS: Please see list ALLERGIES: Please see list SOCIAL HISTORY: Please see list FAMILY HISTORY: Please see list REVIEW OF ORGAN SYSTEMS: CONSTITUTIONAL: No reports of fevers or chills. HEENT: Denies any troubles with the vision or hearing. ENDOCRINE: No reports of hypothyroidism. No diabetes. RESPIRATORY: No recent pneumonias. CARDIOVASCULAR: Denies chest pain or palpitations GI: No blood in stools or constipation. MUSCULOSKELETAL: Has occasional joint pain including back pain. NEURO: No seizure disorders or headaches. No recent stroke. PSYCH: No depression or suicidal ideation. GENITOURINARY: No active blood in urine. No urinary hesitancy. HEMATOLOGIC: No personal or family history of DVTs or pulmonary emboli. SKIN: No skin cancer. PHYSICAL EXAM: VITAL SIGNS: Afebrile vital signs stable GENERAL: Well-developed pleasant in no acute distress. HEENT: No scleral icterus. Extraocular movements grossly intact. Moist buccal mucosa. NECK: Supple without lymphadenopathy. CHEST: Unlabored respirations. Equal bilateral excursions. CARDIOVASCULAR: Regular rate regular rhythm rhythm. Distal 2+ pulses. ABDOMEN: Soft, nondistended. Tender along the epigastrium and right upper quadrant. MUSCULOSKELETAL: No clubbing, cyanosis, or edema. NEURO: Cranial nerves II to XII within normal limits. No focal or lateralizing signs. PSYCH: Alert and oriented to person, place and time. SKIN: Well-perfused good skin turgor. ASSESSMENT: 1. Epigastric and right upper quadrant abdominal pain 2. Chronic cholecystiti PLAN: 1. Will need a robotic cholecystectomy possible open. Benefits and risks were described. 2. Heparin for DVT prophylaxis 5000 units. 3. Antibiotic prophylaxis. 4. CBC and CMP on day of procedure 5. Non-narcotic pre and post op pain management reviewed. 6. Indocyanine green for biliary imaging. Past Medical History Past Medical History: GERD/Reflux Additional Past Medical History / Comment(s): hx. left bundle branch block-sees Dr. Calzada, hx urinary incontinence- no problem currently; pt states GERD resolved after hernia surg. History of Any Multi-Drug Resistant Organisms: None Reported Past Surgical History: Bladder Surgery, Section, Hernia Repair, Hysterectomy, Orthopedic Surgery, Uterine Ablation Additional Past Surgical History / Comment(s): D&C, C/S x2, bladder sling surg.; right foot surg with plate and two screws. Past Anesthesia/Blood Transfusion Reactions: Previous Problems w/ Anesthesia Additional Past Anesthesia/Blood Transfusion Reaction / Comment(s): no blood transfusion; pt states oxygen levels dropped after recent hernia surg. Smoking Status: Never smoker, Second hand smoke exposure - Past Family History Mother Family Medical History: Pulmonary Embolus Medications and Allergies Home Medications Medication Instructions Recorded Confirmed Type Aspirin EC [Ecotrin Low Dose] 81 mg PO DAILY 10/25/23 05/16/24 History Simethicone [Gas-X] 125 mg PO DAILY PRN 05/16/24 05/16/24 History Allergies Allergy/AdvReac Type Severity Reaction Status Date / Time Sulfa (Sulfonamide Allergy Rash/Hives Verified 05/16/24 15:20 Antibiotics) vibegron [From Gemtesa] Allergy Rash/Hives Verified 05/16/24 15:20
[~2024-05-18 13:28] MED LIST changes: +INDOCYANINE GREEN 25 MG VIAL IV STA; +MIDAZOLAM 2 MG/2 ML VIAL IV PRN; -ONDANSETRON 4 MG/2 ML VIAL IVP PRN
[2024-05-18 13:55] VITALS: TEMP 97.3
[2024-05-18] MEDS: IV FLUID CONTINUATION 1,000 ML IV ONE (13:57)
[2024-05-18] MEDS: ACETAMINOPHEN TAB 500 MG TAB PO PRN (13:58)
[2024-05-18] MEDS: DEXAMETHASONE SOD PHOSPHATE 4 MG/ML 1 ML VIAL IVP STA (13:59)
[2024-05-18] MEDS: ONDANSETRON 4 MG/2 ML VIAL IVP PRN (13:59)
[2024-05-18] MEDS: HEPARIN SODIUM,PORCINE 5,000 UNIT/ML 1 ML VIAL SQ PRN (13:59)
[2024-05-18] MEDS: LACTATED RINGERS 1,000 ML IV SCH (14:00)
[2024-05-18] MEDS: FAMOTIDINE 20 MG/2 ML VIAL IV STA (14:34)
[2024-05-18] MEDS: IPRATROPIUM-ALBUTEROL 3 ML NEB INHALATION STA (14:35)
[2024-05-18] MEDS ORDERED: NEOSTIGMINE 1 MG/ML 10 ML VIAL ONE (14:50)
[2024-05-18] MEDS ORDERED: PROPOFOL 10 MG/ML 20 ML VIAL IV ONE (14:50)
[2024-05-18] MEDS ORDERED: GLYCOPYRROLATE 0.2 MG/ML 2 ML VIAL ONE (14:50)
[2024-05-18] MEDS ORDERED: fentaNYL (PF) 50 MCG/ML 2 ML AMP ONE (14:50)
[2024-05-18] MEDS ORDERED: LIDOCAINE 1% INJ 10MG/ML (20 ML MDV) ONE (14:50)
[2024-05-18] MEDS ORDERED: ROCURONIUM 10 MG/ML (5 ML VIAL) IV ONE (14:50)
[2024-05-18] MEDS ORDERED: SUCCINYLCHOLINE CHLORIDE 200 MG/10 ML VIAL IV ONE (14:50)
[2024-05-18] MEDS ORDERED: ePHEDrine 50 MG/ML 1 ML VIAL ONE (14:50)
[2024-05-18 14:51] LABS: Basophils % (A) 1 %; Eosinophils # (A) 0.2 k/uL (0-0.7); Eosinophils % (A) 4 %; HCT 42.7 % (34.0-46.0); HGB 13.9 gm/dL (11.4-16.0); Lymphocytes # (A) 2.1 k/uL (1.0-4.8); Lymphocytes % (A) 42 %; MCHC 32.5 g/dL (31.0-37.0); MCV 89.3 fL (80.0-100.0); Mean Platelet Volume 8.2; Monocytes # (A) 0.4 k/uL (0-1.0); Monocytes % (A) 8 %; Neutrophils # (A) 2.2 k/uL (1.3-7.7); Neutrophils % (A) 44 %; Platelet Count 195 k/uL (150-450); RBC 4.78 m/uL (3.80-5.40); WBC 4.9 k/uL (3.8-10.6)
[2024-05-18 15:11] LABS: ALT 24 U/L (4-34); AST 24 U/L (14-36); African American GFR (CKD) >90 (>60 ml/min/1.73 sqM); Albumin 4.2 g/dL (3.5-5.0); Alkaline Phosphatase 85 U/L (38-126); Anion Gap 8 mmol/L; Blood Urea Nitrogen 11 mg/dL (7-17); Calcium 9.3 mg/dL (8.4-10.2); Carbon Dioxide 25 mmol/L (22-30); Chloride 107 mmol/L (98-107); Glucose 83 mg/dL (74-99); Non-African American GFR(CKD) >90 (>60 ml/min/1.73 sqM); Potassium 4.2 mmol/L (3.5-5.1); Sodium 140 mmol/L (137-145); Total Bilirubin 0.8 mg/dL (0.2-1.3)
[2024-05-18] MEDS: LIDOCAINE 1%-EPI 1:100,000 20 ML VIAL SQ ONE ×2 (15:11→15:19)
[2024-05-18] MEDS: LACTATED RINGERS 1,000 ML IV ONE (15:37)
[2024-05-18] MEDS: HYDROmorphone 0.5 MG/0.5 ML SYRINGE IVP PRN (16:05)
--- NOTE | 2024-05-18 16:27 | P.OP ---
Date of Procedure: 05/18/24 Description of Procedure: SURGEON: MELA ALEXANDER MD PREOPERATIVE DIAGNOSES: 1. Chronic cholecystitis 2. Right upper quadrant abdominal pain 3. Morbid obesity excess calories, BMI 38.3 4. Status post hiatal hernia repair for gastroesophageal reflux disease POSTOPERATIVE DIAGNOSES: 1. Chronic cholecystitis 2. Right upper quadrant abdominal pain 3. Morbid obesity excess calories, BMI 38.3 4. Status post hiatal hernia repair for gastroesophageal reflux disease 5. Fatty liver disease with hepatomegaly OPERATION: Robotic-assisted da Whit Xi laparoscopic cholecystectomy, multiport with FIREFLY ESTIMATED BLOOD LOSS: 10 mL. SPECIMENS REMOVED: Gallbladder. COMPLICATIONS: None. OPERATIVE FINDINGS: 1. Mild fatty liver disease with hepatomegaly 2. Long cystic duct INDICATIONS: The patient is a 49-year-old female who presents with right upper quadrant abdominal pain with chronic cholecystitis. Robotic assisted laparoscopic approach was described. Benefits and risks of the procedure including but not limited to bleeding, infection, injury to the biliary tree was described. Informed consent was obtained. DESCRIPTION OF PROCEDURE: Patient was brought to the operating room, placed in supine position. After general induction, the abdomen had been prepped and draped in standard sterile fashion. The robotic da Whit XI system was primed. After a timeout protocol was performed, the patient had been prepped and draped in standard sterile fashion. The patient was injected with indocyanine green. A 5 mm 0 degrees laparoscopic trocar entry was performed along the left upper quadrant. The abdomen insufflated to 15 mmHg pressure which was tolerated well. Diagnostic laparoscopy demonstrated no injury to bowel viscera or mesentery. The liver surface was unremarkable. Next, two 8 mm robotic ports were placed along the right upper abdomen. The camera 8-mm port was maintained along the epigastrium. Another 8 mm port was placed along the left upper abdominal wall after exchanging the 5 mm port. Please note that the ports were placed at least 10 to 15 cm away from the target anatomy of the gallbladder. The robot was docked along the left lateral abdomen. The patient was repositioned in reverse Trendelenburg position. Using a grasper for arm 3, a grasper for arm 4, including hook cautery for arm 1, the robotic system was docked and primed as described. Instruments were interchanged by the academic assistant including hook cautery, Bovie cautery and clip appliers. I had sat at the console. Next attention was brought to the infundibulum and cystic structures. Dome down technique was performed from the fundus towards the infundibulum with the dissection away from the hepatic fossa. The infundibulum and cystic duct were dissected free from surrounding tissues. The cystic duct was isolated the cystic duct was long.. FIREFLY was used to identify the cystic artery and cystic structures. A critical view of safety was obtained. Large PLASTIC clips were used throughout the entire case. Using a clip retail team member, 3 clips were placed at the junction of the infundibulum and cystic duct. The cystic duct was divided between clips. Next, the cystic artery was similarly clipped and cauterized. Electro-Bovie cautery was used to remove the gallbladder from the hepatic fossa. Hemostasis was checked and found to be adequate. The robot was undocked. I re-scrubbed into the case. Using a 10 mm Endo Catch bag via the left upper quadrant incision, the specimen was removed from the abdominal cavity. All pneumoperitoneum instruments were evacuated from the abdominal cavity. The incisions were reapproximated using 4-0 Monocryl in an interrupted subcuticular fashion. Fascial defects were less than 8 mm in size. Please note along the trocar sites, local anesthetic was placed as a field block prior to insertion of all instruments. Liquid glue was applied to the skin. At the end of the procedure needle, sponge, and instrument count had been verified correct by the registered nurse surgical services. The patient was transferred to postanesthesia care unit in stable condition. Intraoperative films were shared with the patient's family. Plan - Discharge Summary Discharge Rx Participant: No New Discharge Prescriptions: New Acetaminophen Tab [Tylenol Tab] 1,000 mg PO Q6HR PRN #30 tablet PRN Reason: Pain Ibuprofen [Motrin] 600 mg PO Q8HR PRN #30 tab PRN Reason: Pain Simethicone 40 mg/0.6 ml Drops [Mylicon Drops] 40 mg PO Q6HR PRN #30 ml PRN Reason: Abdominal Distention Continue Aspirin EC [Ecotrin Low Dose] 81 mg PO DAILY Discontinued Simethicone [Gas-X] 125 mg PO DAILY PRN PRN Reason: Gas Discharge Medication List Aspirin EC [Ecotrin Low Dose] 81 mg PO DAILY 10/25/23 [History] Acetaminophen Tab [Tylenol Tab] 1,000 mg PO Q6HR PRN #30 tablet 05/18/24 [Rx] Ibuprofen [Motrin] 600 mg PO Q8HR PRN #30 tab 05/18/24 [Rx] Simethicone 40 mg/0.6 ml Drops [Mylicon Drops] 40 mg PO Q6HR PRN #30 ml 05/18/24 [Rx] Follow up Appointment(s)/Referral(s): Mela Alxeander MD [STAFF PHYSICIAN] - 05/22/24 6:35 pm Patient Instructions/Handouts: Laparoscopic Cholecystectomy (DC) Activity/Diet/Wound Care/Special Instructions: TELEHEALTH - DR WILL CALL YOU BETWEEN 9 am to 8 pm NO LONG DRIVES OR AIRPLANE RIDES OVER 60 MINUTES FOR THE NEXT 2 WEEKS, 06/01/24, DUE TO HIGH RISK OF PULMONARY EMBOLISM/DVTs May drive in 72 hrs, 05/21/24 Recommend low-fat diet for the next 2 days. No lifting over 10 pounds in 2 weeks 06/01/24, May shower. No bath tub soaks for two weeks 06/01/24, Diet as tolerated. Use Tylenol, simethicone scheduled for the next 24-48 hours for best pain r elief. Use ice along incisions for today to prevent swelling. Discharge Disposition: HOME SELF-CARE
[2024-05-18] MEDS: SCOPOLAMINE 1 MG/72 HR PATCH TRANSDERM STA (16:28)
[2024-05-18] MEDS: KETOROLAC 15 MG/ML 1 ML VIAL IVP STA (16:39)
[2024-05-18 18:09] VITALS: RESP 16
[2024-05-18] MEDS: MEPERIDINE 25 MG/ML SYRINGE IVP ONE (19:30)
[2024-05-18 19:52] VITALS: BP 110/55; PULSE 62
== END 2024-05-18 20:03 | disposition home or self-care (01) ==
LOC: OR 13:28
PROVIDERS: ATTEND Surgery Plastic and Reconstructive Surgery
DX: K80.10 Calculus of gallbladder with chronic cholecystitis without obstruction (principal); K21.9 Gastro-esophageal reflux disease without esophagitis; E66.01 Morbid (severe) obesity due to excess calories; K76.0 Fatty (change of) liver, not elsewhere classified; R16.0 Hepatomegaly, not elsewhere classified; F17.200 Nicotine dependence, unspecified, uncomplicated; Z68.38 Body mass index [BMI] 38.0-38.9, adult; Z98.890 Other specified postprocedural states; Z90.710 Acquired absence of both cervix and uterus; Z88.2 Allergy status to sulfonamides; Z88.1 Allergy status to other antibiotic agents; Z79.82 Long term (current) use of aspirin; Z79.899 Other long term (current) drug therapy
CPT/HCPCS: 47563; S2900; 80053; 85025; 88304

== ENCOUNTER → 2024-06-12 | Outpatient (CLI) | payer BC ==
--- NOTE | 2024-06-18 07:31 | MM ---
Reason for Exam: Screening (asymptomatic). Last mammogram was performed 2 year(s) and 0 month(s) ago. Patient History: Menarche at age 11. First Full-Term at age 29. Hysterectomy at age 47. Premenopausal. Maternal aunt had breast cancer, age 58. Risk Values: Alice 5 year model risk: 1.1%. NCI Lifetime model risk: 11.0%. Prior Study Comparison: 06/08/2022 Bilateral MG 3D screening mammo w/cad, [facility]. Tissue Density: The breasts are almost entirely fatty. Findings: Analyzed By CAD. Right breast: There is no suspicious group of microcalcifications or new suspicious mass. Left breast: There is no suspicious group of microcalcifications or new suspicious mass. Overall Assessment: Negative, BI-RAD 1 Management: Screening Mammogram of both breasts in [address] [facility] will attempt to contact patient to return for supplemental views and ultrasound if indicated. Patient should continue monthly self-breast exams. A clinical breast exam by your physician is recommended on an annual basis. This exam should not preclude additional follow-up of suspicious palpable abnormalities. Note on Alice scores and lifetime risk: 1. A Alice score greater than 3% is considered moderate risk. If this is the case, consider specialist referral to assess eligibility for a risk reducing agent. 2. If overall lifetime risk for the development of breast cancer is 20% or higher, the patient may qualify for future screening with alternating mammogram and breast MRI. [facility], , 06/18/2024 7:28 AM. Electronically signed and approved by: Bala Vazquez DO
== END | disposition home or self-care (01) ==
LOC: RADMAMWWP 09:04
PROVIDERS: ATTEND Family Medicine
DX: Z12.31 Encounter for screening mammogram for malignant neoplasm of breast (principal); Z80.3 Family history of malignant neoplasm of breast; R92.313 Mammographic fatty tissue density, bilateral breasts
CPT/HCPCS: 77063; 77067